=== PATIENT | male | born 1940 | race Caucasian/White ===

== ENCOUNTER 2016-11-05 09:02 | Outpatient (CLI) | payer OTHER ==
[~2016-11-05] VITALS: Ht 182.9 cm; Wt 108.9 kg
[2016-11-05] MEDS ORDERED: BUPIVACAINE 0.25% 30 ML (SENSORCAINE) VIAL ONE (09:12)
[2016-11-05] MEDS ORDERED: LIDOCAINE 1% INJ 20 ML (XYLOCAINE) VIAL ONE (09:12)
[2016-11-05] MEDS ORDERED: TRIAMCINOLONE ACET (KENALOG-40) 40 MG/ML 1 ML VIAL ONE (09:12)
[2016-11-05 09:21] VITALS: BP 144/85
[2016-11-05 09:39] VITALS: BP 159/88
--- NOTE | 2016-11-05 14:16 | Pain Medicine-Procedure ---
Procedure Pre-Op/Post-Op Diagnosis Diagnosis: sacrococcygeal disorder Indications for Operation Hip pain Attending Surgeon Sandeep Procedure Date of Service: Nov 05, 2016 Procedure: Flouroscopic guided left sacroiliac joint injection PROCEDURE IN DETAIL: After obtaining informed consent from the patient, the patient's chart was reviewed. The patient was then brought to the procedure room and placed in the prone position. A time out was performed. The back was prepped with antiseptic solution and under fluoroscopic guidance the patient's sacroiliac joint on the left side was identified. Left sacroiliac joint was identified with fluoroscopic guidance and 2 mL's of 1% lidocaine was used to anesthestize the skin and then one 22-gauge 3.5 inch spinal needle was inserted and advance under flouroscopic guidance until it was in the posterior inferior 1 /3 of the SI joint on the left side. After negative aspiration, needle was injected with 80 mg of Kenalog along with 2 mL's of 0.25% marcaine. Needle was then flushed with 1% lidocaine and then removed. Band-Aids were applied to all the sites and the patient tolerated the procedure well and was taken to the recovery area in stable condition. Complications None NAHOMI CROUCH MD Nov 05, 2016 2:16 pm
== END 2016-11-05 09:44 ==
LOC: CARD 09:02
PROVIDERS: ATTEND Pain Medicine Pain Medicine
DX: M53.3 Sacrococcygeal disorders, not elsewhere classified (principal); M47.816 Spondylosis without myelopathy or radiculopathy, lumbar region; G89.4 Chronic pain syndrome; Z79.899 Other long term (current) drug therapy
CPT/HCPCS: 27096

== ENCOUNTER → 2016-11-22 | Outpatient (CLI) | payer OTHER ==
--- OUTSIDE RECORDS SUMMARY | 2016-11-22 16:14 | XMS REPORT | Continuity of Care Document ---
Author Author [facility] Organization [facility] Address Unknown Phone Unavailable Care Team Providers Care Equity Research Associate Name Role Phone NO, LOCAL PHYSICIAN PCP Unavailable Insurance Providers Payer Name Policy Number Subscriber Name Relationship [employer] [id number] Katie Gutierrez 20 Self / Same As Patient Advance Directives Directive Response Recorded Date/Time Advance Directives No 11/05/16 9:20am Health Care Power of Local Company Inter[employer] Truck Driver No 11/05/16 9:20am Organ Donor Yes 11/05/16 9:20am Resuscitation Status Full Code 11/05/16 9:20am Problems No problem information available. Medications No medication information available. Social History Social History Problem Response Recorded Date/Time Recent Foreign Travel No 11/05/2016 9:22am Recent Infectious Disease Exposure No 11/05/2016 9:22am Hospital Discharge Instructions No hospital discharge instructions. Plan of Care Discharge Date 11/05/16 9:44am Instructions/Education Provided DR. CROUCH-POST EPIDURAL INST Prescriptions See Medication Section Functional Status No functional status results. Allergies, Adverse Reactions, Alerts No allergy information available. Immunizations No immunization records. Vital Signs Acute Vital Signs Vital Response Date/Time Temperature (Fahrenheit) 97.8 degrees F (97.6 - 99.5) 11/05/2016 9:21am Temperature (Calculated Celsius) 36.23880 degrees C (36.4 - 37.5) 11/05/2016 9:21am Temperature Source Tympanic 11/05/2016 9:21am Pulse Rate (adult) 70 bpm (60 - 90) 11/05/2016 9:39am Respiratory Rate 20 bpm (12 - 24) 11/05/2016 9:39am O2 Sat by Pulse Oximetry 97 % (88 - 100) 11/05/2016 9:39am Blood Pressure 159/88 mm Hg 11/05/2016 9:39am Blood Pressure Mean 104 mm Hg 11/05/2016 9:21am Pain Numeric Pain Scale 2 11/05/2016 9:39am Height (Feet) 6 feet 11/05/2016 9:20am Height (Inches) 0.00 inches 11/05/2016 9:20am Height (Calculated Centimeters) 182.376540 cm 11/05/2016 9:20am Weight (Pounds) 240 pounds 11/05/2016 9:20am Weight (Ounces) 0.0 oz 11/05/2016 9:20am Weight (Calculated Grams) 982976.17 gm 11/05/2016 9:20am Weight (Calculated Kilograms) 108.010005 kilograms 11/05/2016 9:20am Calculated BMI 32.6 11/05/2016 9:20am Results No known relevant diagnostic tests, laboratory data and/or discharge summary. Procedures No known history of procedures. Encounters Encounter Location Arrival/Admit Date Discharge/Depart Date Attending Provider Departed Clinic [facility] 11/05/16 9:02am 11/05/16 9: 44am NAHOMI CROUCH MD
--- NOTE | 2016-11-22 18:08 | Diagnostic Imaging Report ---
Indication: Left hip pain for 6 months, no known injury. Discussion: Two views of the left hip are obtained, no comparison. Mild degenerative disease is present. No fracture or dislocation. Soft tissues are unremarkable. Overall alignment is anatomic. Impression: 1. Mild degenerative changes of the left hip. Dictated by: Dictated on workstation # [id number]
== END ==
LOC: RAD 16:12
PROVIDERS: ATTEND Pain Medicine Pain Medicine
DX: M25.552 Pain in left hip (principal)
CPT/HCPCS: 73502

== ENCOUNTER 2016-11-29 12:30 | Outpatient (CLI) | payer MEDICARE, OTHER ==
[~2016-11-29] VITALS: Ht 188 cm; Wt 108.9 kg
--- OUTSIDE RECORDS SUMMARY | 2016-11-29 12:34 | XMS REPORT | Continuity of Care Document ---
Author Author [facility] Organization [facility] Address Unknown Phone Unavailable Care Team Providers Care Adapted Physical Education Specialist Name Role Phone NO, LOCAL PHYSICIAN PCP Unavailable Insurance Providers Payer Name Policy Number Subscriber Name Relationship [employer] [id number] Katie Gutierrez 20 Self / Same As Patient Advance Directives Directive Response Recorded Date/Time Advance Directives No 11/05/16 9:20am Health Care Power of Leather Colorer No 11/05/16 9:20am Organ Donor Yes 11/05/16 [...] - 99.5) 11/05/2016 9:21am Temperature (Calculated Celsius) 36.09976 degrees C (36.4 - 37.5) 11/05/2016 9:21am [...] 0.00 inches 11/05/2016 9:20am Height (Calculated Centimeters) 182.014394 cm 11/05/2016 9:20am Weight (Pounds) 240 pounds 11/05/2016 9:20am Weight (Ounces) 0.0 oz 11/05/2016 9:20am Weight (Calculated Grams) 934159.17 gm 11/05/2016 9:20am Weight (Calculated Kilograms) 108.716997 kilograms 11/05/2016 9:20am Calculated BMI 32.6 11/05/2016 9:20am Results No known relevant diagnostic tests, laboratory data and/or discharge summary. Procedures No known history of procedures. Encounters Encounter Location Arrival/Admit Date Discharge/Depart Date Attending Provider Departed Clinic [facility] 11/05/16 9:02am 11/05/16 9: 44am NAHOMI CROUCH MD
[2016-11-29] MEDS ORDERED: BUPIVACAINE 0.25% 30 ML (SENSORCAINE) VIAL ONE (12:42)
[2016-11-29] MEDS ORDERED: TRIAMCINOLONE ACET (KENALOG-40) 40 MG/ML 1 ML VIAL ONE (12:42)
[2016-11-29] MEDS ORDERED: LIDOCAINE 1% INJ 20 ML (XYLOCAINE) VIAL ONE (12:42)
[2016-11-29 12:53] VITALS: BP 126/87
[2016-11-29 13:36] VITALS: BP 150/77
--- NOTE | 2016-11-29 14:31 | Pain Medicine-Procedure ---
Procedure Pre-Op/Post-Op Diagnosis Diagnosis: hip osteoarthritis Indications for Operation Hip pain Attending Surgeon Sandeep Procedure Date of Service: Nov 29, 2016 PROCEDURE: Left hip injection under flouroscopic guidance PROCEDURE IN DETAIL: After obtaining informed consent from the patient, the patient's chart was reviewed. The patient was brought to the procedure room and placed in the supine position. The left hip was prepped with antiseptic solution. Then, the joint was identified under fluoroscopic guidance. 2 ml's of 1% Lidocaine was used to anesthetize the skin. A 22 gauge 3.5 inch spinal needle was inserted through the skin under fluoroscopic guidance until the needle touched the femur at the neck on the left side. Then, after negative aspiration, 2 ml of contrast was injected under fluoroscopic guidance which showed good spread of the dye inside the joint. Then, after negative aspiration, 80 mg of kenalog was injected mixed with 4 ml of 0.25% Marcaine. The needle was then flushed with 1 % lidocaine and removed. The patient tolerated the procedure well and a band-Aid was applied and the patient was taken to the recovery room in stable condition. Complications None NAHOMI CROUCH MD Nov 29, 2016 2:31 pm
== END 2016-11-29 13:37 ==
LOC: CARD 12:30
PROVIDERS: ATTEND Pain Medicine Pain Medicine
DX: M16.12 Unilateral primary osteoarthritis, left hip (principal); G89.4 Chronic pain syndrome; M53.3 Sacrococcygeal disorders, not elsewhere classified; M47.816 Spondylosis without myelopathy or radiculopathy, lumbar region; Z79.899 Other long term (current) drug therapy
CPT/HCPCS: 20610; 77002

== ENCOUNTER 2017-01-24 11:45 | Outpatient (CLI) | payer MEDICARE ==
[~2017-01-24] VITALS: Ht 188 cm; Wt 108.9 kg
[2017-01-24] MEDS ORDERED: TRIAMCINOLONE ACET (KENALOG-40) 40 MG/ML 1 ML VIAL ONE (11:51)
[2017-01-24] MEDS ORDERED: LIDOCAINE 1% INJ 20 ML (XYLOCAINE) VIAL ONE (11:51)
[2017-01-24] MEDS ORDERED: BUPIVACAINE 0.25% 30 ML (SENSORCAINE) VIAL ONE (11:51)
[2017-01-24 11:58] VITALS: BP 135/82
[2017-01-24 12:40] VITALS: BP 138/94
--- NOTE | 2017-01-24 14:25 | Pain Medicine-Procedure ---
Procedure Pre-Op/Post-Op Diagnosis Diagnosis: hip osteoarthritis Indications for Operation Hip pain Attending Surgeon Sandeep Procedure Date of Service: January 24, 2017 PROCEDURE: Left hip injection under flouroscopic guidance PROCEDURE IN DETAIL: After obtaining informed consent from the patient, the patient's chart was reviewed. The patient was brought to the procedure room and placed in the supine position. The left hip was prepped with antiseptic solution. Then, the joint was identified under fluoroscopic guidance. 2 ml's of 1% Lidocaine was used to anesthetize the skin. A 22 gauge 3.5 inch spinal needle was inserted through the skin under fluoroscopic guidance until the needle touched the femur at the neck on the left side. Then, after negative aspiration, 2 ml of contrast dye was injected under fluoroscopic guidance which showed good spread of the dye inside the joint. Then, after negative aspiration, 80 mg of kenalog was injected mixed with 4 ml of 0.25% Marcaine. The needle was then flushed with 1% lidocaine and removed. The patient tolerated the procedure well and a band-Aid was applied and the patient was taken to the recovery room in stable condition. Complications None NAHOMI CROUCH MD January 24, 2017 2:25 pm
== END 2017-01-24 12:42 | disposition home or self-care (01) ==
LOC: CARD 11:45
PROVIDERS: ATTEND Pain Medicine Pain Medicine
DX: M16.12 Unilateral primary osteoarthritis, left hip (principal); G89.4 Chronic pain syndrome; M53.3 Sacrococcygeal disorders, not elsewhere classified; M47.816 Spondylosis without myelopathy or radiculopathy, lumbar region
CPT/HCPCS: 20610; 77002